=== PATIENT | female | born 2000 | race African-American/Black ===

== ENCOUNTER 2019-04-22 17:55 | Emergency (ER) | payer SELFPAY ==
[~2019-04-22] VITALS: Ht 152.4 cm; Wt 74.5 kg
[2019-04-22] MEDS ORDERED: [UNRECOGNIZED DRUG - CODE] TP (18:10)
[2019-04-22] MEDS ORDERED: [UNRECOGNIZED DRUG - CODE] PO (18:10)
[2019-04-22] MEDS ORDERED: CHOL100018 PO (18:10)
[2019-04-22] MEDS ORDERED: CYAN100072 PO (18:10)
[2019-04-23 00:02] VITALS: BP 121/77
== END 2019-04-23 00:05 | disposition home or self-care (01) ==
LOC: EMS 17:57
DX: S63.613A Unspecified sprain of left middle finger, initial encounter (principal); S50.01XA Contusion of right elbow, initial encounter; S80.02XA Contusion of left knee, initial encounter; E78.00 Pure hypercholesterolemia, unspecified; W01.0XXA Fall on same level from slipping, tripping and stumbling without subsequent striking against object, initial encounter; Y93.89 Activity, other specified; Y92.89 Other specified places as the place of occurrence of the external cause; Y99.8 Other external cause status